=== PATIENT | male | born 1985 | race Two or more races ===

== ENCOUNTER 2024-12-20 08:55 | Day surgery (SDC) | payer MEDICAID, SELFPAY ==
[2024-12-19 14:23] VITALS: BMI 32.3
[2024-12-20] VITALS (11 sets, daily range): BP systolic 110–149; BP diastolic 61–96; PULSE 67–90; RESP 11–20; TEMP 36.4–36.6; O2SAT 94–99; BMI 32.3
[2024-12-20] MEDS: SODIUM CHLORIDE 0.9% 500 ML 500 ML 20 ML IV (10:08)
[2024-12-20] MEDS: DiphenhydrAMINE INJ 50 MG/ML VIAL 25 MG IVP (10:18)
[2024-12-20] MEDS: fentaNYL CIT INJ 50 mCg/ML AMP 2ML (ASD USE ONLY) IVP (10:18)
[2024-12-20] MEDS: MIDAZOLAM INJ 1 MG/ML VIAL 2 ML (ASD USE ONLY) 2 MG IVP (10:18)
== END 2024-12-20 11:05 | disposition home or self-care (01) ==
PROVIDERS: Referring Provider Internal Medicine Gastroenterology; Visit Provider Internal Medicine Gastroenterology
PROC: 0DBE8ZX Excision of Large Intestine, Via Natural or Artificial Opening Endoscopic, Diagnostic (ICD-10-PCS; CPT 45380; principal; 2024-12-20 09:45)
DX: K64.8 Other hemorrhoids (principal)
CPT/HCPCS: 45380; J1200; J2250; J3010; J7040

== ENCOUNTER 2024-12-22 08:45 | Day surgery (SDC) | payer MEDICAID, SELFPAY ==
[2024-12-21 14:46] VITALS: BMI 32.3
[2024-12-22] VITALS (10 sets, daily range): BP systolic 124–149; BP diastolic 75–99; PULSE 68–90; RESP 12–20; TEMP 36.6–37.1; O2SAT 92–97; BMI 31.9
[2024-12-22] MEDS: BENZOCAINE 20% (Hurricaine) SPRAY 1 DOSE TOP (11:33)
[2024-12-22] MEDS: SODIUM CHLORIDE 0.9% 500 ML 500 ML 20 ML IV (11:34)
[2024-12-22] MEDS: fentaNYL CIT INJ 50 mCg/ML AMP 2ML IVP (11:38)
[2024-12-22] MEDS: MIDAZOLAM INJ 1 MG/ML VIAL 2 ML 2 MG IVP (11:38)
[2024-12-22] MEDS: DiphenhydrAMINE INJ 50 MG/ML VIAL 25 MG IVP (11:50)
== END 2024-12-22 12:55 | disposition home or self-care (01) ==
PROVIDERS: Referring Provider Internal Medicine Gastroenterology; Visit Provider Internal Medicine Gastroenterology
PROC: (CPT 43239; principal; 2024-12-22 09:45)
DX: K29.70 Gastritis, unspecified, without bleeding (principal); K44.9 Diaphragmatic hernia without obstruction or gangrene; K59.09 Other constipation; K63.89 Other specified diseases of intestine; K29.50 Unspecified chronic gastritis without bleeding; B96.81 Helicobacter pylori [H. pylori] as the cause of diseases classified elsewhere
CPT/HCPCS: 43239; J1200; J2250; J3010; J7040; A9270